=== PATIENT | male | born 1960 | race Caucasian/White ===

== ENCOUNTER → 2018-04-03 | Outpatient (CLI) | payer OTHER ==
[~2018-04-03] VITALS: Ht 180.3 cm; Wt 87.5 kg
[~2018-04-03] MED LIST: ASP81TEC PO; CATHETER FLUSH 10 ML SYR IV PRN; HYDR-3583 PO; METO25TA2 PO; PNT40TEC PO; RNT150T PO; SIMV40TA2 PO; TADA2.5T PO
[2018-04-03 13:23] VITALS: BP 174/92
[2018-04-03 13:39] VITALS: BP 212/94
--- NOTE | 2018-04-04 08:07 | STRESS TEST ---
DATE OF SERVICE: 04/03/2018 AN EXERCISE MYOVIEW STRESS TEST REPORT REFERRING PHYSICIAN: Dr. Gaudencio Monaco Baseline heart rate is 68. Baseline blood pressure is 172/90. Baseline EKG is sinus rhythm with no acute ischemic changes. In summary, the patient was injected with 10.81 mCi of technetium-99 Myoview and the resting images were obtained. Then, the patient started exercising with a baseline heart rate, blood pressure and EKG mentioned above. The patient was able to exercise for a total of 10 minutes and 40 seconds on standard Steven protocol. With peak exercise level, the patient had 1 to [address] depression in V4, V5, upsloping ST depression in V3, lead 2 and 3. In recovery, the patient had occasional premature ventricular contractions and ventricular couplets. The resting and stress images were reviewed and compared in the short axis, horizontal long axis and vertical long axis views. Review of the images showed diaphragmatic attenuation with mild decreased uptake at the base of the inferolateral wall with subtle reversibility. SSS is 1, SDS 1, TID value is 0.83. On the gated images, the left ventricle appeared to be a normal size with normal contractility. Calculated ejection fraction is 58%. CONCLUSION: 1. Excellent exercise tolerance, a total of 10 minutes 40 seconds on standard Steven protocol, total of 12.1 METS achieving 92% of maximum expected heart rate. 2. Baseline hypertension with severe hypertensive response to exercise, achieving maximum blood pressure of 244/89, returned to baseline during recovery. 3. Borderline EKG changes, nondiagnostic changes. 4. Diaphragmatic attenuation with subtle abnormality at the base of the inferolateral wall with mild reversibility, no gross ischemia or infarction was noted. 5. Normal left ventricular size with normal contractility. Calculated ejection fraction is 58%. Job ID: [id number] DocumentID: [id number] Dictated Date: 04/04/2018 07:52:15 Bending Machine Set Up Operator Date: 04/04/2018 08:07:29 Dictated By: MEIR MANUEL MD
== END ==
LOC: CARD 11:14
PROVIDERS: ATTEND Internal Medicine Cardiovascular Disease
DX: I25.10 Atherosclerotic heart disease of native coronary artery without angina pectoris (principal); I10 Essential (primary) hypertension; E78.2 Mixed hyperlipidemia; Z82.49 Family history of ischemic heart disease and other diseases of the circulatory system
CPT/HCPCS: 78452; 93017

== ENCOUNTER 2018-09-06 11:55 | Outpatient (CLI) | payer OTHER ==
[~2018-09-06 11:55] MED LIST changes: -CATHETER FLUSH 10 ML SYR IV PRN
== END 2018-09-06 12:30 | disposition home or self-care (01) ==
LOC: SLEEP 11:55
PROVIDERS: ATTEND Otolaryngology Otolaryngology/Facial Plastic Surgery
DX: G47.33 Obstructive sleep apnea (adult) (pediatric) (principal); R06.83 Snoring; I10 Essential (primary) hypertension; I25.9 Chronic ischemic heart disease, unspecified

== ENCOUNTER → 2018-09-26 | Outpatient (CLI) | payer OTHER | LOC: CARD 08:25 | PROVIDERS: ATTEND Internal Medicine Cardiovascular Disease | DX: I25.10 Atherosclerotic heart disease of native coronary artery without angina pectoris (principal); I10 Essential (primary) hypertension; E78.2 Mixed hyperlipidemia; Z82.49 Family history of ischemic heart disease and other diseases of the circulatory system | CPT/HCPCS: 93306 ==

== ENCOUNTER → 2019-03-14 | Outpatient (CLI) | payer OTHER ==
--- NOTE | 2019-03-14 11:32 | Diagnostic Imaging Report ---
PROCEDURE: US carotid duplex, bilateral. TECHNIQUE: Multiple real-time grayscale images were obtained over the carotid arteries in various projections, bilaterally. Additional spectral analysis and color Doppler duplex images were also obtained. INDICATION: Retinal abnormality. COMPARISON: There are no prior studies available for comparison. FINDINGS: There is a moderate amount of hard and soft plaque formation in both carotid systems. The flow velocities failed to show any sign of a hemodynamically significant stenosis of the common or internal carotid arteries. Both vertebral arteries were identified and there was antegrade flow bilaterally. During the course of the exam nodules were identified in each lobe of the thyroid. On the right, the nodule is estimated to be 1.6 x 1.2 x 1.5 cm while the left-sided nodule is larger measuring 3.3 x 2.6 x 2.3 cm. There also appear to be a few enlarged lymph nodes in the left neck with the largest measuring 3.3 x 3.1 x 1.5 cm. I would recommend that a dedicated thyroid ultrasound exam and ultrasound exam of the soft tissues of the neck be performed for further study. IMPRESSION: 1. There is atherosclerotic disease involving both carotid systems but there is no evidence for a hemodynamically significant stenosis of the common or internal carotid arteries. 2. There are bilateral thyroid nodules and adenopathy in the left neck. Recommendations as above. Parameters based on the consensus panel Roberto-Scale and Doppler ultrasound criteria published May 2003, Radiology, Volume 229. DOPPLER (peak systolic velocity M/S Right Left CCA 1.2 1.1 ICA Proximal .84 .63 ICA Mid .88 .83 ICA Distal .96 .82 RATIO 0.72 0.58 ECA 1.1 .76 VERT .57 .47 Dictated by: Dictated on workstation # [id number]
== END ==
LOC: RAD 08:56
PROVIDERS: ATTEND Nurse Practitioner Family
DX: I65.23 Occlusion and stenosis of bilateral carotid arteries (principal); E04.2 Nontoxic multinodular goiter; I25.10 Atherosclerotic heart disease of native coronary artery without angina pectoris; I27.21 Secondary pulmonary arterial hypertension; G47.33 Obstructive sleep apnea (adult) (pediatric); I10 Essential (primary) hypertension; R59.0 Localized enlarged lymph nodes
CPT/HCPCS: 93225; 93226; 93880

== ENCOUNTER → 2019-05-29 | Outpatient (CLI) | payer OTHER ==
--- NOTE | 2019-05-29 17:08 | Diagnostic Imaging Report ---
PROCEDURE: US Thyroid. TECHNIQUE: Multiple real-time grayscale images were obtained of the thyroid in various projections. INDICATION: Thyroid nodules. COMPARISON: None. FINDINGS: The thyroid demonstrates a generalized heterogeneous echotexture. Right lobe of the thyroid measures 5.7 x 1.9 x 2.2 cm. The left lobe of the thyroid measures 5.3 x 2.7 x 3.5 cm. The isthmus measures 0.4 cm in thickness. Multiple heterogeneous solid nodules are seen throughout the thyroid which demonstrate vascularity. The largest in the inferior pole of the right thyroid measures 1.7 x 1.6 x 1.6 cm and demonstrates associated calcifications. The largest on the left is visualized in the inferior pole measuring 3.7 x 2.8 x 2.7 cm and also demonstrates associated calcifications. Enlarged lymph nodes are seen in the bilateral cervical chains, the largest in the left neck measuring 2.6 x 3.6 x 1.1 cm. IMPRESSION: 1. Multiple heterogeneous vascular solid nodules within the thyroid bilaterally. Recommend correlation with TSH values and thyroid FNA if indicated. 2. Bilateral cervical lymphadenopathy. Dictated by: Dictated on workstation # [id number]
== END ==
LOC: RAD 11:14
PROVIDERS: ATTEND Family Medicine
DX: E04.2 Nontoxic multinodular goiter (principal); R59.0 Localized enlarged lymph nodes
CPT/HCPCS: 76536

== ENCOUNTER → 2019-07-15 | Outpatient (CLI) | payer OTHER ==
[~2019-07-15] MED LIST changes: +GADOBUTROL 10 MMOL/10 ML (GADAVIST) VIAL IV ONE
[2019-07-15 13:52] LABS: BUN/CREATININE RATIO 20; CREATININE SERUM 0.98 MG/DL (0.60-1.30); GFR ESTIMATED > 60
--- NOTE | 2019-07-15 15:20 | Diagnostic Imaging Report ---
INDICATION: Optic nerve edema. COMPARISON: No prior studies are available for comparison. FINDINGS: The ventricles and sulci are within normal limits. No diffusion restriction is identified to suggest acute ischemia. The normal expected flow voids within the carotid siphons are seen. No white matter changes are identified. No acute intra-axial or extra-axial hemorrhage is detected. The corpus callosum is unremarkable. The sella and parasellar structures are unremarkable. Note is made of bilateral mastoid effusions. There is some mucosal thickening as well as a mucus retention cyst or polyp in the left maxillary sinus. There is mucosal thickening involving ethmoid air cells. Imaging through the orbits demonstrates both globes to be symmetric and unremarkable. Extraocular muscles appear to be symmetric. No orbital mass is seen. No abnormal enhancement following contrast administration is seen. The optic nerves appear to be symmetric. IMPRESSION: 1. Essentially unremarkable MRI of the brain and orbits. No abnormalities detected. 2. Paranasal sinus mucosal disease and bilateral mastoid effusions. Dictated by: Dictated on workstation # [id number]
== END ==
LOC: RAD 13:23
PROVIDERS: ATTEND Ophthalmology
DX: H47.10 Unspecified papilledema (principal); M25.48 Effusion, other site; J32.9 Chronic sinusitis, unspecified
CPT/HCPCS: 36415; 70553; 82565; 84520

== ENCOUNTER → 2019-10-01 | Outpatient (CLI) | payer OTHER ==
[~2019-10-01] MED LIST changes: -GADOBUTROL 10 MMOL/10 ML (GADAVIST) VIAL IV ONE
--- NOTE | 2019-10-01 10:01 | Diagnostic Imaging Report ---
INDICATION: Status post complete thyroidectomy. Patient has bilateral neck lumps. COMPARISON: Correlation is made with an outside ultrasound from 06/26/2019 as well as a prior thyroid ultrasound from 05/29/2019. FINDINGS: The thyroid is now surgically absent. There are enlarged lymph nodes in the neck soft tissues bilaterally. The largest nodes appear to be on the right side on today's study. There is a lymph node measuring approximately 4.5 x 2.4 x 1.3 cm. A second node measures 1.8 x 1.6 x 0.7 cm. On the left, the largest node is approximately 1.7 x 0.7 x 2.4 cm. This appears reduced when compared with the prior thyroid ultrasound from May when there were enlarged lymph nodes in the left neck measuring up to 2.6 x 3.6 cm. These are not appreciated on today's study. No fluid collections are seen. IMPRESSION: Bilateral cervical lymphadenopathy with the largest on the right side. The enlarged lymph nodes previously noted in the left neck appear reduced in size since the prior exam. The patient is reportedly scheduled for lymph node biopsies tomorrow. Dictated by: Dictated on workstation # [id number]
== END ==
LOC: RAD 08:46
PROVIDERS: ATTEND Otolaryngology
DX: C73 Malignant neoplasm of thyroid gland (principal); C83.00 Small cell B-cell lymphoma, unspecified site; R22.1 Localized swelling, mass and lump, neck; R59.0 Localized enlarged lymph nodes; Z90.49 Acquired absence of other specified parts of digestive tract
CPT/HCPCS: 76536

== ENCOUNTER → 2019-10-02 | Outpatient (CLI) | payer OTHER ==
[~2019-10-02] VITALS: Ht 180.3 cm; Wt 81.8 kg
[~2019-10-02] MED LIST changes: +LIDOCAINE 1% INJ 20 ML 20 ML VIAL INJ ONE; +LIDOCAINE 1% INJ 20 ML 20 ML VIAL ONE
--- NOTE | 2019-10-03 08:58 | Diagnostic Imaging Report ---
INDICATION: Bilateral cervical lymphadenopathy. Patient presents for ultrasound-guided soft tissue neck lymph node biopsy. Patient is brought to the procedure room placed on the table in supine position. Ultrasound imaging of the left neck was performed to evaluate appropriate entry site. Left neck was then prepped and draped in usual sterile fashion. Small amount of 1% lidocaine was utilized for local anesthesia. A total of 4 passes were made into largest lymph node left neck in the left submandibular location utilizing 25-gauge needles and fine-needle aspiration technique. Hemostasis was obtained using manual compression. Patient tolerated the procedure well and left department in stable condition. IMPRESSION: Successful ultrasound-guided fine-needle aspiration of left neck submandibular lymph node. Pathology results are currently pending. Dictated by: Dictated on workstation # [id number]
--- NOTE | 2019-10-03 10:22 | Diagnostic Imaging Report ---
INDICATION: Right neck lymphadenopathy. Patient presents for ultrasound-guided biopsy. FINDINGS: Patient was brought to the procedure room, placed on table in the supine position. Ultrasound imaging of the right neck was performed to evaluate appropriate entry site. The right neck was then prepped and draped in the usual sterile fashion. A small amount of 1% lidocaine was utilized for local anesthesia. A total of four passes were made into the dominant lymph node in the right neck utilizing 25-gauge needles and fine-needle aspiration technique. Next, total of three core biopsies were obtained of the dominant lymph node in the right neck utilizing 18-gauge Temno needle. Jasper were removed and hemostasis was obtained using manual compression. Patient tolerated the procedure well and left the department in stable condition. IMPRESSION: Successful right neck lymph node fine-needle aspiration and core biopsy, using ultrasound guidance. Dictated by: Dictated on workstation # [id number]
== END ==
LOC: RAD 09:37
PROVIDERS: ATTEND Otolaryngology
DX: C83.01 Small cell B-cell lymphoma, lymph nodes of head, face, and neck (principal); C73 Malignant neoplasm of thyroid gland
CPT/HCPCS: 88173; 88305

== ENCOUNTER → 2020-03-17 | Outpatient (CLI) | payer OTHER ==
[~2020-03-17] MED LIST changes: -LIDOCAINE 1% INJ 20 ML 20 ML VIAL INJ ONE; -LIDOCAINE 1% INJ 20 ML 20 ML VIAL ONE
== END ==
LOC: CARD 08:38
PROVIDERS: ATTEND Internal Medicine Cardiovascular Disease
DX: I25.10 Atherosclerotic heart disease of native coronary artery without angina pectoris (principal); I10 Essential (primary) hypertension; E78.2 Mixed hyperlipidemia; I27.20 Pulmonary hypertension, unspecified
CPT/HCPCS: 93306

== ENCOUNTER 2020-04-16 07:45 | Observation (INO) | payer OTHER ==
[2020-04-16] VITALS (13 sets, daily range): BP systolic 121–161; BP diastolic 68–97
[~2020-04-16] VITALS: Ht 181 cm; Wt 84.0 kg
[~2020-04-16 07:45] MED LIST changes: +CATHETER FLUSH 10 ML SYR IV PRN
[2020-04-16] MEDS ORDERED: LEVOTHYROXINE 150 MCG (LEVOTHROID) TAB PO ONE (10:15)
[2020-04-16] MEDS ORDERED: CLOPIDOGREL 75 MG (PLAVIX) TABLET PO ONE ×2 (10:15→14:15)
[2020-04-16] MEDS ORDERED: NS IV 1000 ML 1,000 ML IV SCH (10:15)
[2020-04-16] MEDS ORDERED: ASPIRIN 81 MG CHEW (CHILDREN'S ASA) PO ONE (10:15)
[2020-04-16] MEDS ORDERED: meTOproloL SUCCINATE 50 MG (TOPROL XL) TAB PO SCH ×2 (10:15→14:15)
--- NOTE | 2020-04-16 11:15 | Cardiology History & Physical ---
HPI-Cardiology Cardiology H&P Date of Admission 04-16-2020 Primary Care Physician Karina Huff MD Attending Physician Alan Coleman MD Facp Fac Ccds Consulting Physician MEGAN Mr. Orellana is a 60 year old male who is being admitted to [facility] from his exercise cardiolite stress test earlier this morning d/t episodes of WCT during the recovery phase. He denies any c/o CP, palpitations, dyspnea, syncope or near syncope. No c/o LE swelling. No c/o n/v/d. No c/o fever or chills. Review of Systems-Cardiology Review of Systems Constitutional: No chills, No fever, No weight loss Eyes: No vision change Ears/Nose/Throat: No recent hearing loss Respiratory: As described under HPI Cardiovascular: As described under HPI Gastrointestinal: No constipation, No diarrhea, No nausea Genitourinary: No dysuria, No hematuria Musculoskeletal: no symptoms reported Skin: No rash on exposed areas Psychiatric/Neurological: No anxiety, No focal weakness, No syncope Hematologic: No bleeding abnormalities [id number] Hx Patient Social History Recent Foreign Travel: No Past Medical History PMH As described under Assessment. Family Medical History Family Medical History: Family h/o father having CAD Allergies and Home Medications Allergies Coded Allergies: Penicillins (Unverified Allergy, Unknown, 03/17/20) Home Medications Aspirin 81 Mg Tabec, 81 MG PO DAILY, (Reported) Clopidogrel Bisulfate 75 Mg Tablet, 75 MG PO DAILY Prescribed by: ALAN COLEMAN on 04/17/20 1513 Hydrocodone Bit/Acetaminophen 1 Tab Tab, 1-2 EA PO Q4HR PRN, (Reported) MAY TAKE 1 OR 2 TABS BY MOUTH EVERY 4 HRS NEEDED FOR PAIN Metoprolol Succinate 100 Mg Tab.er.24h, 100 MG PO DAILY Prescribed by: ALAN COLEMAN on 04/17/20 1513 Simvastatin 40 Mg Tablet, 40 MG PO HS, (Reported) Physical Exam-Cardiology Physical Exam Vital Signs/I&O Capillary Refill : Constitutional: AAO x 3, well-developed, well-nourished HEENT: PERRL, hearing is well preserved, oral hygience is good Neck: No carotid bruit; carotid pulses are 2 + bilaterally Respiratory: No accessory muscle use, No respiratory distress; chest expansion is symmetric, chest is bilaterally symmetric, lungs clear to auscultation Cardiovascular: regular rate-rhythm, S1 and S2 Gastrointestinal: soft, round, audible bowel sounds Extremities: no lower extremity edema bilateral Neurologic/Psychiatric: grossly intact (moves all extremities) Skin: No rash on exposed areas, No ulcerations on exposed areas A/P-Cardiology Assessment/Admission Diagnosis WCT recovery phase exercise cardiolite this morning Papillary thyroid CA for which he has had thyroidectomy, lymph nodes dissection, radioiodine ablation in early 2019 Non-Hodgkin's lymphoma diagnosed in early 2019. Oncologist Dr Mahoney and Dr Ortega at [place], [place] CAD. H/o MORRISSEY to LAD by Dr Fay in 2010. Echocardiogram of September [address] Giles showed LVEF 55-65%. Mild to mod TR. PASP 45-50mmHg Carotid u/s of Feb 2019 showed mild to mod carotid dz without hemodynamic signif 24 HR Holter of Mar 16, 2019 with NSR with av HR 79 bpm. Rare, isolated PVC's and PAC's. No VT or SVT or significant bradycardia on this study Pulmonary hypertension per echo of September 2018 Sleep apnea - CPAP tx in the past that he stopped in or around October 2019 because he felt he didn't have DIANA any longer after thyroid surgery. (He did check with his sleep physician, Dr Chaves, before stopping CPAP) Hypertension Hyperlipidemia, treated with statin and followed by his pcp Impaired fasting glucose Non-arteritic anterior ischemic optic neuropathy (NAION) - for which he is following with Dr. Pro at [facility], apparently resolved after thyroid surgery of early 2019 Admission Status: Observation Discussion and Recomendations Episode of WCT during recovery phase of exercise cardiolite this morning Admit to [facility] Cardiac cath later today. We have discussed the procedure, risks, benefits and potential complications of cardiac cath with possible ad hoc coronary intervention. He provides informed consent. We will proceed later today. Start Plavix Continue ASA, BB and statin CMP, lipid, CBC, TSH, Mag level Further recs will be based on his hospital course IRAIDA GARCES Apr 16, 2020 11:15
[2020-04-16 11:30] LABS: HEMOGLOBIN 15.8 g/dL (13.3-17.7); MEAN PLATELET VOLUME 11.1 fL (9.0-12.2)
[2020-04-16 11:38] LABS: CHLORIDE 105 MMOL/L (98-107); POTASSIUM 4.2 MMOL/L (3.6-5.0); SODIUM 139 MMOL/L (135-145)
[2020-04-16 11:40] LABS: CALCIUM 8.8 MG/DL (8.5-10.1); TRIGLYCERIDES 128 MG/DL (<150); VLDL CHOLESTEROL 26 MG/DL (5-40)
[2020-04-16 11:41] LABS: GLUCOSE 116 MG/DL (70-105)
[2020-04-16 11:42] LABS: CARBON DIOXIDE 22 MMOL/L (21-32)
[2020-04-16 11:44] LABS: GFR ESTIMATED > 60
[2020-04-16 11:45] LABS: BUN/CREATININE RATIO 20
[2020-04-16 11:46] LABS: CHOLESTEROL 151 MG/DL (< 200); HDL CHOLESTEROL 36 MG/DL (40-60)
[2020-04-16] MEDS ORDERED: NS IV 1000 ML 1,000 ML ONE (11:53)
[2020-04-16] MEDS ORDERED: HEParin (CATH LAB) 2,000 ML IV ONE (11:53)
[2020-04-16] MEDS ORDERED: LIDOCAINE 1% INJ 20 ML 20 ML VIAL ONE (11:53)
[2020-04-16 11:56] LABS: PROTHROMBIN TIME PATIENT 13.5 SEC (12.2-14.7)
[2020-04-16] MEDS ORDERED: CLOPIDOGREL 75 MG (PLAVIX) TABLET ONE (14:15)
[2020-04-16] MEDS ORDERED: ASPIRIN 325 MG (5 GR) TABLET PO ONE (14:15)
[2020-04-16] MEDS ORDERED: fentaNYL INJECTION 100 MCG/2 ML AMP ONE (14:16)
[2020-04-16] MEDS ORDERED: MIDAZOLAM 5 MG/5 ML (VERSED) VIAL ONE (14:16)
[2020-04-16] MEDS ORDERED: ASPIRIN E.C. 81 MG (ECOTRIN) TAB PO ONE (14:16)
--- NOTE | 2020-04-16 14:28 | NUR ---
Non Licensed Nuclear Equipment Operator team in room to take pt to director geophysical laboratory.
[2020-04-16] MEDS ORDERED: EPTIFIBATIDE BOLUS 20 ML IV ONE (15:05)
[2020-04-16] MEDS ORDERED: HEParin 1000 UNIT/ML (10ML VIAL) FOR BOLUS ONE (15:05)
[2020-04-16] MEDS ORDERED: ASPIRIN 81 MG CHEW (CHILDREN'S ASA) ONE (15:33)
[2020-04-16] MEDS ORDERED: CLOPIDOGREL 300 MG (PLAVIX) TABLET PO ONE (15:33)
--- NOTE | 2020-04-16 15:41 | Cardiology History & Physical ---
HPI-Cardiology Cardiology H&P Date of Admission 04/16/20 Primary Care Physician Karina Huff MD Attending Physician Alan Coleman MD, MA FACP [facility] Consulting Physician [facility] Mr. Orellana is a 60 year old male who is being admitted to [facility] from his exercise cardiolite stress test earlier this morning d/t episodes of WCT during the recovery phase. He denies any c/o CP, palpitations, dyspnea, syncope or near syncope. No c/o LE swelling. No c/o n/v/d. No c/o fever or chills. Review of Systems-Cardiology Review of Systems Constitutional: No chills, No fever, No weight loss Eyes: No vision change Ears/Nose/Throat: No recent hearing loss Respiratory: As described under HPI Cardiovascular: As described under HPI Gastrointestinal: No constipation, No diarrhea, No nausea Genitourinary: No dysuria, No hematuria Musculoskeletal: no symptoms reported Skin: No rash on exposed areas Psychiatric/Neurological: No anxiety, No focal weakness, No syncope Hematologic: No bleeding abnormalities NDH-Pumkoo-Xiduxb Hx Patient Social History Recent Foreign Travel: No Past Medical History PMH As described under Assessment. Family Medical History Family Medical History: Family h/o father having CAD Allergies and Home Medications Allergies Coded Allergies: Penicillins (Unverified Allergy, Unknown, 03/17/20) Home Medications Aspirin 81 Mg Tabec, 81 MG PO DAILY, (Reported) Hydrocodone Bit/Acetaminophen 1 Tab Tab, 1-2 EA PO Q4HR PRN, (Reported) MAY TAKE 1 OR 2 TABS BY MOUTH EVERY 4 HRS NEEDED FOR PAIN Metoprolol Tartrate 25 Mg Tablet, 1 TAB PO DAILY, (Reported) Simvastatin 40 Mg Tablet, 40 MG PO HS, (Reported) Patient Home Medication List Home Medication List Reviewed: Yes Physical Exam-Cardiology Physical Exam Vital Signs/I&O 04/16/20 04/16/20 04/16/20 04/16/20 09:02 10:35 11:50 12:35 Temp 36.3 Pulse 79 74 60 66 Resp 16 12 17 B/P (MAP) 152/97 (115) 159/89 (112) 161/94 (116) Pulse Ox 99 98 97 O2 Delivery Room Air Room Air Room Air Capillary Refill : Constitutional: AAO x 3, well-developed, well-nourished HEENT: PERRL, hearing is well preserved, oral hygience is good Neck: No carotid bruit; carotid pulses are 2 + bilaterally Respiratory: No accessory muscle use, No respiratory distress; chest expansion is symmetric, chest is bilaterally symmetric, lungs clear to auscultation Cardiovascular: regular rate-rhythm, S1 and S2 Gastrointestinal: soft, round, audible bowel sounds Extremities: no lower extremity edema bilateral Neurologic/Psychiatric: grossly intact (moves all extremities) Skin: No rash on exposed areas, No ulcerations on exposed areas Data Review Labs Laboratory Tests 04/16/20 11:15: White Blood Count 8.0, Red Blood Count 5.76H, Hemoglobin 15.8, Hematocrit 48, Mean Corpuscular Volume 83, Mean Corpuscular Hemoglobin 27, Mean Corpuscular Hemoglobin Concent 33, Red Cell Distribution Width 13.1, Platelet Count 130, Mean Platelet Volume 11.1, Prothrombin Time 13.5, INR Comment 1.0, Activated Partial Thromboplast Time 25, Sodium Level 139, Potassium Level 4.2, Chloride Level 105, Carbon Dioxide Level 22, Anion Gap 12, Blood Urea Nitrogen 20H, Creatinine 1.00, Estimat Glomerular Filtration Rate > 60, BUN/Creatinine Ratio 20, Glucose Level 116H, Calcium Level 8.8, Triglycerides Level 128, Cholesterol Level 151, LDL Cholesterol Direct 100, VLDL Cholesterol 26, HDL Cholesterol 36L, Thyroid Stimulating Hormone (TSH) 0.13L A/P-Cardiology Assessment/Admission Diagnosis Nonsustained wide-complex tachycardia during recovery phase of ETT-MPI this morning. This is suggestive of ischemia Papillary thyroid CA for which he has had thyroidectomy, lymph nodes dissection, radioiodine ablation in early 2019 Non-Hodgkin's lymphoma diagnosed in early 2019. Oncologist Dr Mahoney and Dr Ortega at [place], [place] CAD. H/o MORRISSEY to LAD by Dr Fay in 2010. Echocardiogram of September [address] Giles showed LVEF 55-65%. Mild to mod TR. PASP 45-50mmHg Carotid u/s of Feb 2019 showed mild to mod carotid dz without hemodynamic signif 24 HR Holter of Mar 16, 2019 with NSR with av HR 79 bpm. Rare, isolated PVC's and PAC's. No VT or SVT or significant bradycardia on this study Pulmonary hypertension per echo of September 2018 Sleep apnea - CPAP tx in the past that he stopped in or around October 2019 because he felt he didn't have DIANA any longer after thyroid surgery. (He did check with his sleep physician, Dr Chaves, before stopping CPAP) Hypertension Hyperlipidemia, treated with statin and followed by his pcp Impaired fasting glucose Non-arteritic anterior ischemic optic neuropathy (NAION) - for which he is following with Dr. Pro at [facility], apparently resolved after thyroid surgery of early 2019 Admission Status: Observation Discussion and Recomendations Episode of WCT during recovery phase of exercise cardiolite this morning Admit to [facility] Cardiac cath later today. We have discussed the procedure, risks, benefits and potential complications of cardiac cath with possible ad hoc coronary intervent ion. He provides informed consent. We will proceed later today. Start Plavix Continue ASA, BB and statin CMP, lipid, CBC, TSH, Mag level Further recs will be based on his hospital course ALAN COLEMAN MD FACP FAC [facility] Apr 16, 2020 15:41
[2020-04-16] MEDS ORDERED: PATIENT MAY USE OWN MEDS, ALL PO SCH (16:00)
[2020-04-16] MEDS ORDERED: ACETAMINOPHEN 325 MG TABLET PO PRN (16:00)
[2020-04-16] MEDS: NS IV 1000 ML 1,000 ML IV SCH (17:18)
--- NOTE | 2020-04-16 18:55 | STRESS TEST ---
DATE OF SERVICE: 04/16/2020 RESTING AND POST EXERCISE TECHNETIUM-99M TETROFOSMIN SPECT CT IMAGING ORDERING PHYSICIAN: Dr. Coleman. PRIMARY PHYSICIAN: Dr. Huff. CLINICAL DIAGNOSES: Coronary artery disease. Baseline images were carried out after injection of 10.76 mCi of technetium-99m Tetrofosmin. This was followed by exercise on a treadmill. Steven protocol was employed. Heart rate response to exercise was normal. Blood pressure response to exercise was somewhat hypertensive. There was approximately [address] segment depression at peak exercise and in the immediate post-recovery phase. Also, in the recovery phase, shortly after completion of the exercise, the patient had a brief run of nonsustained wide complex tachycardia at approximately 100 beats per minute. This was asymptomatic and resolving. The patient received 29.5 mCi of technetium-99m Tetrofosmin after he had approximately 83% of maximum predicted heart rate and had indicated that he would not be able to go more than another minute. The exercise was then continued for another minute. He attained 90% of maximum predicted heart rate and exercised for a total of 11 minutes and 12 seconds in the Steven protocol. He had attained 12.1 METS of workload. Review of images at rest and following stress does not indicate any distinct perfusion defects consistent with significant myocardial ischemia or infarction. Gated images show normal global left ventricular systolic function with normal regional wall motion. Left ventricular ejection fraction is calculated to be 61%. Left ventricular end diastolic volume is 61 mL. TID is absent (0.92). CONCLUSION: 1. Imaging does not indicate significant myocardial ischemia or infarction. However, the study is abnormal because the patient had nonsustained wide complex tachycardia at approximately 100 beats per minute in the immediate post-exercise phase (asymptomatic). 2. Normal global left ventricular systolic function with normal regional wall motion and left ventricular ejection fraction of 61%. 3. Normal left ventricular cavity size. Job ID: [id number] DocumentID: [id number] Dictated Date: 04/16/2020 14:32:29 Senior Internet Sales Consultant Date: 04/16/2020 18:54:11 Dictated By: MARCELINO COLEMAN MD, MA, FACP, FACC, MTDD
[2020-04-16] MEDS ORDERED: ATROPINE INJ 0.4 MG/ML SDV ONE (19:29)
[2020-04-16] MEDS ORDERED: fentaNYL INJECTION 100 MCG/2 ML AMP IVP NR (19:30)
[2020-04-16] MEDS ORDERED: SIMvastatin 10 MG (ZOCOR) TAB PO SCH (21:00)
--- NOTE | 2020-04-16 21:48 | CARDIAC CATHETERIZATION ---
DATE OF SERVICE: 04/16/2020 CARDIAC CATHETERIZATION AND CORONARY INTERVENTION The patient is a 60-year-old gentleman with a history of coronary artery disease who has had left internal mammary artery graft bypass surgery to the left anterior descending several years ago. Today, in the immediate recovery phase of a stress test, he developed nonsustained wide complex tachycardia. He was hospitalized. Cardiac catheterization was carried out after we had obtained informed consent for cardiac catheterization and possible ad hoc coronary intervention. DESCRIPTION OF PROCEDURE: He was brought to the cardiac catheterization laboratory in a fasting state. Right groin was prepared and draped in the usual sterile fashion. Lidocaine 1% was used for local anesthesia. Modified Seldinger technique was used to advance a 5-Bangladeshi sheath into the right femoral artery, 5-Bangladeshi JL4 catheter was used for left coronary angiography, 5-Bangladeshi JR4 catheter was used for right coronary angiography and for angiography of the left internal mammary artery graft to the left anterior descending. A 5-Bangladeshi pigtail catheter was used for left heart catheterization and left ventricular angiography. Pigtail was pulled back to the aortic root and aortic root angiography was performed. Aortic root angiography was performed to make sure that there were no additional coronary vessels because the right coronary artery was found to be diminutive. PERCUTANEOUS INTERVENTION PERCUTANEOUS INTERVENTION TO THE LEFT ANTERIOR DESCENDING: The left anterior descending has approximately 70% ostial and proximal stenosis. This appears to be functionally significant because of the patient's nonsustained wide complex tachycardia in the immediate post-exercise phase. The left internal mammary artery graft goes to a diagonal branch of the left anterior descending not directly to the left anterior descending. There does not appear to be retrograde flow into the left anterior descending. Accordingly, we proceeded with percutaneous intervention to the ostial/proximal left anterior descending. We exchanged the sheath over a wire for a 6-Bangladeshi sheath. We used a 6-Bangladeshi JL4 guide catheter to engage the left coronary. We used a BMW wire to cross the lesion. We advanced Xience Gaby 2.75 x 12 mm stent. This was carefully positioned to cover the entire lesion and the stent was deployed at 16 atmospheres. Subsequent angiography revealed 0% residual stenosis at the previous site of 70% stenosis. Flow throughout the vessel is normal. There is no compromise of the other vessels. The patient tolerated the procedure well. He received intravenous heparin and a double bolus of Integrilin during the procedure and oral clopidogrel following the procedure. HEMODYNAMICS: Left ventricular end-diastolic pressure following coronary angiography was 10 mmHg. There was no significant pressure gradient on pullback across the aortic valve. Ascending aortic pressure was 138/68 with a mean of 96 mmHg. CORONARY ANGIOGRAPHY: Left main coronary artery is free of significant disease. Left anterior descending has approximately 70% ostial and proximal stenosis, which was successfully stented with Xience Gaby 2.75 x 12 mm stent. Left circumflex artery is dominant. Right coronary artery is very small and nondominant. LEFT INTERNAL MAMMARY ARTERY GRAFT ANGIOGRAPHY: Left internal mammary artery graft appears to go to the first diagonal branch. It is intact, but appears of small caliber and atretic. LEFT VENTRICULAR ANGIOGRAPHY: Left ventricular angiography was carried out in the right anterior oblique projection. Global left ventricular systolic function is normal. Left ventricular ejection fraction is approximately 60%. AORTIC ROOT ANGIOGRAPHY: Aortic root angiography did not show any thoracic aortic aneurysm or dissection. There is no significant aortic regurgitation. No additional coronary vessels were identified other than the ones described above. Aortic valve leaflets exhibit good leaflet excursion. CONCLUSIONS: 1. Coronary artery disease consisting of 70% ostial and proximal stenosis of left anterior descending artery that was successfully stented with Xience Gaby 2.75 x 12 mm stent. 2. Small, atretic left internal mammary artery graft to a diagonal branch of the left anterior descending. 3. Normal left ventricular end-diastolic pressure. 4. Normal global left ventricular systolic function with ejection fraction of approximately 60%. Job ID: [id number] DocumentID: [id number] Dictated Date: 04/16/2020 16:08:35 Panel Sewer Date: 04/16/2020 21:47:30 Dictated By: MARCELINO SEGURA MD, MA, FACP, FACC,
[2020-04-17] VITALS (11 sets, daily range): BP systolic 106–149; BP diastolic 48–85
[2020-04-17] MEDS: NS IV 1000 ML 1,000 ML IV SCH ×2 (01:51→10:33)
[2020-04-17 02:55] LABS: HEMOGLOBIN 14.7 g/dL (13.3-17.7); WHITE BLOOD COUNT 8.9 10^3/uL (4.3-11.0)
[2020-04-17 03:16] LABS: BUN/CREATININE RATIO 15; CARBON DIOXIDE 22 MMOL/L (21-32); CHLORIDE 107 MMOL/L (98-107); CREATININE SERUM 1.13 MG/DL (0.60-1.30); GFR ESTIMATED > 60; GLUCOSE 107 MG/DL (70-105); POTASSIUM 3.9 MMOL/L (3.6-5.0); SODIUM 142 MMOL/L (135-145)
[2020-04-17] MEDS ORDERED: LEVOTHYROXINE 150 MCG (LEVOTHROID) TAB PO SCH (06:30)
[2020-04-17] MEDS ORDERED: LEVOTHYROXINE 100 MCG (LEVOTHROID) TAB PO SCH (08:25)
[2020-04-17] MEDS ORDERED: LEVOTHYROXINE 75 MCG (LEVOTHROID) TABLET PO SCH (08:26)
[2020-04-17] MEDS ORDERED: ASPIRIN 81 MG CHEW (CHILDREN'S ASA) PO SCH (09:00)
[2020-04-17] MEDS ORDERED: meTOproloL SUCCINATE 50 MG (TOPROL XL) TAB PO SCH (09:00)
[2020-04-17] MEDS ORDERED: CLOPIDOGREL 75 MG (PLAVIX) TABLET PO SCH (09:00)
[2020-04-17] MEDS ORDERED: CLOP75TA28 PO (15:13)
[2020-04-17] MEDS ORDERED: METO100T6 PO (15:13)
--- NOTE | 2020-04-17 15:15 | Discharge Inst-Cardiology ---
Discharge Inst-Cardiac Discharge Medications New Medications: Metoprolol Succinate (Toprol Xl) 100 Mg Tab.er.24h 100 MG PO DAILY, #90 TAB 3 Refills Clopidogrel Bisulfate (Clopidogrel) 75 Mg Tablet 75 MG PO DAILY for 90 Days, #90 TAB 3 Refills Continued Medications: Aspirin (Aspirin Ec 81 Mg) 81 Mg Tabec 81 MG PO DAILY Hydrocodone Bit/Acetaminophen (Lortab 5 Mg) 1 Tab Tab 1 - 2 EA PO Q4HR PRN, #30 1 Refill MAY TAKE 1 OR 2 TABS BY MOUTH EVERY 4 HRS NEEDED FOR PAIN Simvastatin (Zocor) 40 Mg Tablet 40 MG PO HS Discontinued Medications: Metoprolol Tartrate (Metoprolol Tartrate 25 Mg) 25 Mg Tablet 1 TAB PO DAILY MARCELINO SEGURA MD FACP [facility] CCDS Apr 17, 2020 15:15
--- NOTE | 2020-04-17 15:16 | Discharge Inst-Post CATH ---
Discharge Inst-CATH/EP Post Cardiac Cath/EP D/C Inst Follow Up/Plan F/u with Dr Coleman in one week ACTIVITY * Go Home directly and rest. * Limit activity of the leg (or wrist if it was used) for 7 days including aerobics, swimming, jogging, bicycling, etc. * Restrict stair-climbing for 7 days if possible, if not, climb up with your non-cath leg, then bring together on the same step. * Avoid lifting, pushing, pulling or excessive movement of the affected e xtremity for 7 days. * Customary sexual activity may be resumed after 2 days-use caution not to use a position that strains or causes pain to the affected extremity. * No driving for 24 hours. * NO SMOKING. * Avoid straining for bowel movements for 7 days. * Gentle walking on level ground is allowed. * Returning to work will depend on the type of procedure and the results. Your doctor will discuss this with you. CALL YOUR DOCTOR FOR ANY OF THE FOLLOWING: *If bleeding from the puncture site occurs- Apply gentle pressure to site with clean cloth and call your doctor or EMS. * If a knot or lump forms under the skin, increases in size, or causes pain. * If bruising appears to be worsening or moving further down your leg instead of disappearing. * Temperature above 101 F. CARE OF YOUR GROIN INCISION; * Bruising or purple discoloration of the skin near the puncture site is common. * You may shower only, no bathtub bathing for 5 days. Be careful to avoid slipping as your leg may feel stiff. * If a closure device was used on your femoral artery, please see the attached guide regarding care of the device and your leg. * Leave dressing on FOR 24 hours. CARE OF YOUR WRIST INCISION; * Bruising or purple discoloration of the skin near the puncture site is common. * You may shower. * DO NOT submerge wrist. * Leave dressing on FOR 24 hours. MARCELINO COLEMAN MD FACP [facility]S Apr 17, 2020 15:16
--- NOTE | 2020-04-17 15:22 | Progress Note - Cardiology ---
Cardiology SOAP Progress Note Subjective: No cp or palp or syncope or shortness of breath or groin or leg discomfort No n/v/d No focal weakness Feels well and wishes to go home Objective: I&O/Vital Signs 04/17/20 04/17/20 04/17/20 04/17/20 04:00 05:00 06:00 07:00 Pulse 65 57 57 63 Resp 20 18 18 B/P (MAP) 133/70 (91) 138/78 (98) 106/75 (85) Pulse Ox 96 95 95 O2 Delivery Nasal Cannula Nasal Cannula Nasal Cannula O2 Flow Rate 1.00 1.00 1.00 04/17/20 04/17/20 04/17/20 04/17/20 07:00 08:00 08:00 11:51 Temp 36.2 Pulse 62 61 Resp 15 21 B/P (MAP) 138/76 (96) 149/85 (106) Pulse Ox 96 95 O2 Delivery Nasal Cannula Nasal Cannula Room Air O2 Flow Rate 1.00 1.00 04/17/20 04/17/20 12:16 12:49 Pulse 69 O2 Delivery Room Air 04/17/20 00:00 Intake Total 6 ml Balance 6 ml Weight (Pounds): 193 Weight (Ounces): 0.0 Weight (Calculated Kilograms): 87.349678 Constitutional: AAO x 3, well-developed, well-nourished Respiratory: No accessory muscle use, No respiratory distress; chest expansion is symmetric, chest is bilaterally symmetric, lungs clear to auscultation Cardiovascular: regular rate-rhythm, S1 and S2 Gastrointestional: soft, round, audible bowel sounds Extremities: no lower extremity edema bilateral Neurologic/Psychiatric: grossly intact (moves all extremities) Skin: No rash on exposed areas, No ulcerations on exposed areas Results/Procedures: Labs Laboratory Tests 04/16/20 16:53: Activated Partial Thromboplast Time 92H 04/16/20 18:20: Activated Partial Thromboplast Time 40H 04/17/20 02:40: White Blood Count 8.9, Red Blood Count 5.34, Hemoglobin 14.7, Hematocrit 44, Mean Corpuscular Volume 83, Mean Corpuscular Hemoglobin 28, Mean Corpuscular Hemoglobin Concent 33, Red Cell Distribution Width 13.1, Platelet Count 125L, Mean Platelet Volume 11.0, Sodium Level 142, Potassium Level 3.9, Chloride Level 107, Carbon Dioxide Level 22, Anion Gap 13, Blood Urea Nitrogen 17, Creatinine 1.13, Estimat Glomerular Filtration Rate > 60, BUN/Creatinine Ratio 15, Glucose Level 107H, Calcium Level 8.0L Laboratory Tests 04/16/20 11:15 04/17/20 02:40 A/P: Assessment: Nonsustained wide-complex tachycardia during recovery phase of ETT-MPI on 04/16/20, suggestive of ischemia, treated with relief of ischemia by stenting a severe, ostial stenosis of the LAD on 04/16/20 CAD, s/o MORRISSEY to LAD in 2010. Last card cath on 04/16/20: Coronary artery disease consisting of 70% ostial and proximal stenosis of left anterior descending artery that was successfully stented with Xience Gaby 2.75 x 12 mm stent; Small, atretic left internal mammary artery graft to a diagonal branch of the left anterior descending; Normal left ventricular end-diastolic pressure; Normal global left ventricular systolic function with ejection fraction of approximately 60%. 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 Oncologist Dr Mahoney and Dr Ortega at [place], [place] Echocardiogram of September [address] Giles showed LVEF 55-65%. Mild to mod TR. PASP 45-50mmHg Carotid u/s of Feb 2019 showed mild to mod carotid dz without hemodynamic signif 24 HR Holter of Mar 16, 2019 with NSR with av HR 79 bpm. Rare, isolated PVC's and PAC's. No VT or SVT or significant bradycardia on this study Pulmonary hypertension per echo of September 2018 Sleep apnea - CPAP tx in the past that he stopped in or around October 2019 because he felt he didn't have DIANA any longer after thyroid surgery. (He did check with his sleep physician, Dr Chaves, before stopping CPAP) Hypertension Hyperlipidemia, treated with statin and followed by his pcp Impaired fasting glucose Non-arteritic anterior ischemic optic neuropathy (NAION) - for which he is following with Dr. Pro at [facility], apparently resolved after thyroid surgery of early 2019 Plan: During this hosp, we added Plavix and increased BB after PCI to LAD. He is currently doing well, has not exhibited any arrhythmia post PCI. Wishes to go home. We discussed risk factor mod. We answered his and his 's questions in detail. Outpt f/u advised. Compliance with meds advised MARCELINO SEGURA MD FACP [facility]S Apr 17, 2020 15:22
--- NOTE | 2020-04-17 15:26 | Cardiology Discharge Summary ---
Diagnosis/Chief Complaint Date of Admission Apr 16, 2020 at 11:00 Date of Discharge 04/17/20 Final/Discharge Diagnosis Nonsustained wide-complex tachycardia during recovery phase of ETT-MPI on 04/16/20, suggestive of ischemia, treated with relief of ischemia by stenting a severe, ostial stenosis of the LAD on 04/16/20 CAD, s/o MORRISSEY to LAD in 2010. Last card cath on 04/16/20: Coronary artery disease consisting of 70% ostial and proximal stenosis of left anterior descending artery that was successfully stented with Xience Gaby 2.75 x 12 mm stent; Small, atretic left internal mammary artery graft to a diagonal branch of the left anterior descending; Normal left ventricular end-diastolic pressure; Normal global left ventricular systolic function with ejection fraction of approximately 60%. 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 Oncologist Dr Mahoney and Dr Ortega at [place], [place] Echocardiogram of September [address] Giles showed LVEF 55-65%. Mild to mod TR. PASP 45-50mmHg Carotid u/s of Feb 2019 showed mild to mod carotid dz without hemodynamic signif 24 HR Holter of Mar 16, 2019 with NSR with av HR 79 bpm. Rare, isolated PVC's and PAC's. No VT or SVT or significant bradycardia on this study Pulmonary hypertension per echo of September 2018 Sleep apnea - CPAP tx in the past that he stopped in or around October 2019 because he felt he didn't have DIANA any longer after thyroid surgery. (He did check with his sleep physician, Dr Chaves, before stopping CPAP) Hypertension Hyperlipidemia, treated with statin and followed by his pcp Impaired fasting glucose Non-arteritic anterior ischemic optic neuropathy (NAION) - for which he is following with Dr. Pro at [facility], apparently resolved after thyroid surgery of early 2019 Chief Complaint/HPI Chief Complaint/HPI HPI Mr. Orellana is a 60 year old male who is being admitted to [facility] from his exercise cardiolite stress test earlier this morning d/t episodes of WCT during the recovery phase. He denies any c/o CP, palpitations, dyspnea, syncope or near syncope. No c/o LE swelling. No c/o n/v/d. No c/o fever or chills. For hospital course and condition at discharge, please see the progress note of today's date (04/17/20) Discharge Summary Discussion & Recommendations Home Medications Reviewed patient Home Medication Reconciliation performed by pharmacy medication reconciliations mobile battery technician and/or nursing. Patients Allergies have been reviewed. Discharge Home Medications: Reviewed and agree with Discharge Medication list on patient's Discharge Ins truction sheet Instructions to patient/family F/u with Dr Coleman in one week MARCELINO COLEMAN MD FACP [facility] CCDS Apr 17, 2020 15:26
--- NOTE | 2020-04-17 16:30 | NUR ---
PT EDUCATED ON DISCHARGE INSTRUCTIONS AND HOME MEDICATIONS. PT STATED UNDERSTANDING.
== END 2020-04-17 16:35 | disposition home or self-care (01) ==
LOC: CARD 07:45 → CSD 11:00 → ICU 15:34
PROVIDERS: ADMIT Internal Medicine Cardiovascular Disease; ATTEND Internal Medicine Cardiovascular Disease
DX: I25.10 Atherosclerotic heart disease of native coronary artery without angina pectoris (principal); I10 Essential (primary) hypertension; E78.5 Hyperlipidemia, unspecified; G47.30 Sleep apnea, unspecified; Z79.82 Long term (current) use of aspirin; Z79.899 Other long term (current) drug therapy; Z88.0 Allergy status to penicillin
CPT/HCPCS: 78452; 80048 ×2; 80061; 84443; 85027 ×2; 85610; 85730; 93005; 93017; 93459; 93567; A9502; C1769; C1874; C1887; C1894 ×2; C9600; 36415

== ENCOUNTER → 2021-05-11 | Outpatient (CLI) | payer OTHER ==
[~2021-05-11] MED LIST changes: -CATHETER FLUSH 10 ML SYR IV PRN; +CLOP75TA28 PO; +METO100T6 PO
== END ==
LOC: CARD 14:30
PROVIDERS: ATTEND Internal Medicine Cardiovascular Disease
DX: I27.21 Secondary pulmonary arterial hypertension (principal)
CPT/HCPCS: 93306

== ENCOUNTER 2021-11-03 06:12 | Outpatient (CLI) | payer OTHER ==
[~2021-11-03] VITALS: Ht 180 cm; Wt 84.0 kg
[2021-11-03] MEDS ORDERED: TMSL.4C PO (11:00)
[2021-11-03] MEDS ORDERED: LIOT5TAB10 PO (11:00)
[2021-11-03] MEDS ORDERED: LEVO175C2 PO (11:00)
[2021-11-03] MEDS ORDERED: TADA20TA PO (11:00)
== END 2021-11-03 11:12 | disposition home or self-care (01) ==
LOC: PREOP 06:12
PROVIDERS: ATTEND Internal Medicine
DX: Z01.818 Encounter for other preprocedural examination (principal)

== ENCOUNTER 2021-11-11 07:23 | Day surgery (SDC) | payer OTHER ==
--- NOTE | 2021-11-03 08:10 | HISTORY AND PHYSICAL ---
DATE OF SERVICE: COLONOSCOPY HISTORY AND PHYSICAL HISTORY OF PRESENT ILLNESS: The patient is a 61-year-old white male referred by Dr. Dylon Cagle for screening colonoscopy. I had performed his only other colonoscopy in 2009, at which time no evidence for neoplasia or significant diverticular disease was noted. He is not aware of any family history for colon cancer. Occasionally, he notes some bright red blood per rectum when he wipes, but no blood in the stool. Denies melena or change in weight. Over the past 11 years, there had been some significant changes in history. He was diagnosed with low-grade non-Hodgkin's lymphoma that is being watched conservatively. It was noted at that time he underwent surgery for what turned out to be papillary carcinoma of the thyroid in 2019. This was likely cured. He had a melanoma on his right forearm apparently a low Garry's level without evidence for recurrence a number of years ago and is going to be undergoing retinal surgery for vision correction involving the right eye in 3 or 4 weeks. He has a past history of coronary artery disease and underwent carotid artery bypass grafting, a number of years ago with no cardiovascular complications since. His bypass surgery in fact was now about 11 years ago. SOCIAL HISTORY: He works for [employer] for the last 40 years with no smoking and only rare alcohol intake. He is with adult children. REVIEW OF SYSTEMS: CONSTITUTIONAL: Denies night sweats, chills, fever, change in weight. GASTROINTESTINAL: As noted in the HPI. PULMONARY: Denies cough, wheezing or shortness of breath. CARDIOVASCULAR: Denies orthopnea, PND, pedal edema, chest discomfort or dyspnea on exertion. PHYSICAL EXAMINATION: GENERAL: Reveals a well-appearing white male, appears to be in no acute distress. VITAL SIGNS: Blood pressure 142/70, weight 191 pounds. HEENT: Unremarkable. Sclerae nonicteric. CHEST: Clear to auscultation. CARDIOVASCULAR: Reveals a regular rate and rhythm without significant murmur, S3 or S4. ABDOMEN: Soft, supple without mass, organomegaly, tenderness or evidence for abdominal aortic aneurysm or bruits. On physical examination, bowel sounds are positive. No mass or organomegaly noted. EXTREMITIES: Reveal no cyanosis, clubbing or edema. ASSESSMENT: The patient is being set up for screening colonoscopy. Prep instructions with Suprep kit were given and questions were answered. He will hold aspirin one week prior to the procedure, which he had been doing due to a small amount of retinal hemorrhage, which likely occurred over a year ago. Prep instructions with Suprep kit were given and questions were answered. I thank you for the referral of this pleasant gentleman. Job ID: [id number] DocumentID: [id number] Dictated Date: 10/31/2021 16:17:46 Hris Coordinator Date: 10/31/2021 17:02:55 Dictated By: RODRÍGUEZ ROBERTS MD
[~2021-11-11] VITALS: Ht 180 cm; Wt 84.0 kg
[~2021-11-11 07:23] MED LIST changes: +LEVO175C2 PO; +LIOT5TAB10 PO; +TADA20TA PO; +TMSL.4C PO
[2021-11-11] MEDS ORDERED: LACTATED RINGERS 1,000 ML IV ONE (07:29)
--- NOTE | 2021-11-11 07:36 | Pre-Op Note & Conscious Sedat ---
Pre-Operative Progress Note H&P Reviewed The H&P was reviewed, patient examined and no changes noted. Date H&P Reviewed: Nov 11, 2021 Time H&P Reviewed: 07:36 Conscious Sedation Pre-Proced ASA Score 2 For ASA 3 and 4: Consider anesthesia and medical clearance. Also, for patients with a history of failed moderate sedation consider anesthesia. Airway Lungs Heart ASA score ASA 1: a normal healthy patient ASA 2: a patient with a mild systemic disease (mid diabetes, controlled hypertension, obesity ASA 3: a patient with a severe systemic disease that limits activity (angina, COPD, prior Myocardial infarction) ASA 4: a patient with an incapacitating disease that is a constant threat to life (CHF, renal failure) ASA 5: a moribund patient not expected to survive 24 hrs. (ruptured aneurysm) ASA 6: a declared brain- patient whose organs are being harvested. For emergent operations, add the letter E after the classification Mallampati Classification Grade 2 Sedation Plan Analgesia, Amnesia, Plan communicated to team members, Discussed options with patient/fam, Discussed risks with patient/fam The patient is an appropriate candidate to undergo the planned procedure, sedation, and anesthesia. The patient immediately re-assessed prior to indication. RODRÍGUEZ ROBERTS MD Nov 11, 2021 07:36
[2021-11-11] MEDS ORDERED: LACTATED RINGERS 1,000 ML IV STA (07:37)
[2021-11-11 07:52] VITALS: BP 162/84
[2021-11-11] MEDS ORDERED: proPOfol 200 MG/20 ML (DIPRIVAN) VIAL IV ONE ×2 (08:05→08:09)
[2021-11-11 08:35] VITALS: BP 95/50
[2021-11-11 08:40] VITALS: BP 98/54
[2021-11-11 08:45] VITALS: BP 98/54
[2021-11-11 09:00] VITALS: BP 100/60
--- NOTE | 2021-11-11 10:14 | Anesthesia-General Post-Op ---
MAC Patient Condition Mental Status/LOC: Same as Preop Cardiovascular: Satisfactory Nausea/Vomiting: Absent Respiratory: Satisfactory Pain: Controlled Complications: Absent Post Op Complications Complications None Follow Up Care/Instructions Patient Instructions None needed. Anesthesiology Discharge Order Discharge Order Patient is doing well, no complaints, stable vital signs, no apparent adverse anesthesia problems. No complications reported per nursing. MAYRA LINCOLN ROPE LAYING MACHINE OPERATOR Nov 11, 2021 10:14
--- NOTE | 2021-11-11 10:47 | OPERATIVE REPORT ---
DATE OF SERVICE: COLONOSCOPY SUMMARY INDICATION FOR THE PROCEDURE: Screening colonoscopy. PROCEDURE IN DETAIL: The patient was placed in the left lateral decubitus position. Prior to undergoing colonoscopy, digital rectal evaluation was performed. Anal sphincter tone was normal and the perianal reflexes intact. The prostate is mildly enlarged and anodular on digital inspection. No abnormalities were noted on digital inspection of anal canal or distal rectal vault. The colonoscope was then inserted into the rectum and under direct visualization advanced to the cecum. The cecum was identified by identification of ileocecal valve and cecal strap. Photographic documentation was obtained. Careful inspection was made as colonoscope was withdrawn. Quality of prep was good. FINDINGS: There was no evidence for internal or external hemorrhoids. Present in the distal rectum was a diminutive 3 mm sessile polyp. It was biopsied and ablated and submitted for histopathology. The remainder of the rectum was unremarkable. Present in the proximal sigmoid colon was a 5 mm sessile polyp was photographed, biopsied and ablated with no blood loss. The descending colon, splenic flexure, transverse colon were unremarkable. Present another diminutive 2 mm polyp was noted at hepatic flexure, was biopsied and ablated. A 3 mm proximal ascending colonic polyp was biopsied and ablated as well. The cecum was unremarkable. No evidence for diverticular disease was noted. ASSESSMENT: Three small sessile polyps were removed as noted above with no subsequent blood loss. As long as there is no surprise on histopathology report and as long as there continues to be no family history for colon cancer, we would advocate consideration for repeat screening colonoscopy in 10 years. Digital evaluation of the prostate was compatible with mild BPH. I thank you for the referral of this pleasant gentleman. CC: Dr. Dylon Cagle - requested, unable to deliver. Job ID: [id number] DocumentID: [id number] Dictated Date: 11/11/2021 08:41:08 Bookkeeper Receptionist Date: 11/11/2021 10:47:16 Dictated By: RODRÍGUEZ ROBERTS MD
== END 2021-11-11 09:10 | disposition home or self-care (01) ==
LOC: ENDO 07:23
PROVIDERS: ATTEND Internal Medicine
DX: Z12.11 Encounter for screening for malignant neoplasm of colon (principal); K62.1 Rectal polyp; D12.3 Benign neoplasm of transverse colon; D12.2 Benign neoplasm of ascending colon; D12.5 Benign neoplasm of sigmoid colon; C85.90 Non-Hodgkin lymphoma, unspecified, unspecified site
CPT/HCPCS: 88305

== ENCOUNTER 2021-11-24 05:33 | Outpatient (CLI) | payer OTHER ==
[~2021-11-24] VITALS: Ht 180.3 cm; Wt 84.0 kg
== END 2021-11-24 13:53 | disposition home or self-care (01) ==
LOC: PREOP 05:33
PROVIDERS: ATTEND Surgery
DX: Z01.818 Encounter for other preprocedural examination (principal)

== ENCOUNTER 2021-12-01 06:25 | Day surgery (SDC) | payer OTHER ==
[2021-12-01] VITALS (12 sets, daily range): BP systolic 127–150; BP diastolic 66–80
[~2021-12-01] VITALS: Ht 180.3 cm; Wt 84.0 kg
[2021-12-01] MEDS: LACTATED RINGERS 1,000 ML IV PRN ×2 (07:25→11:32)
[2021-12-01] MEDS ORDERED: CLINDAMYCIN 600 MG/50 ML IVPB 50 ML IV ONE (08:00)
[2021-12-01] MEDS ORDERED: morphine INJ 10 MG/ML 1ML (SYR OR VIAL) IVP PRN (09:30)
[2021-12-01] MEDS ORDERED: ONDANSETRON 4 MG/2 ML (SDV) Z0FRAN IVP PRN ×2 (09:30→12:45)
[2021-12-01] MEDS ORDERED: ACETAMINOPHEN 325 MG TABLET PO PRN (09:30)
[2021-12-01] MEDS ORDERED: HYDROcodone/APAP 5 MG/325 MG (LORTAB) TAB PO ONE (09:30)
--- NOTE | 2021-12-01 09:30 | Progress Note-Pre Operative ---
Pre-Operative Progress Note H&P Reviewed The H&P was reviewed, patient examined and no changes noted. Date Seen by Provider: December 01, 2021 Time Seen by Provider: 09:25 Date H&P Reviewed: December 01, 2021 Time H&P Reviewed: 09:20 Pre-Operative Diagnosis: Lymphadenopathy, right breast swelling, history of thyroid cancer and NHL JONATHAN HUNT APRN December 01, 2021 09:30
[2021-12-01] MEDS ORDERED: HYDR-3817 PO (09:31)
--- NOTE | 2021-12-01 09:31 | Discharge Inst-Surgical ---
D/C Lap Instructions-KIDO Reconcile Patient Problems Problems Reviewed?: Yes New, Converted, or Re-Newed RX: RX on Chart Follow Up Appt in 2 weeks Activity as tolerated No driving for 24 hours No driving while on pain medications Incentive Spirometry use every 2 hours while awake Regular Diet Symptoms to Report: Fever over 101 degree F, Nausea/Vomiting Infection Signs and Symptoms to report: Increased redness, Foul odor of wound, Increased drainage Bathing instructions: May shower Operative Area Clean/Dry; Keep incision clean/dry If any problems/questions: Contact your physician or go to Emergency Room JONATHAN HUNT APRN December 01, 2021 09:31
[2021-12-01] MEDS ORDERED: fentaNYL INJ 100 MCG/2 ML AMP ONE (10:27)
[2021-12-01] MEDS ORDERED: proPOfol 200 MG/20 ML (DIPRIVAN) VIAL IV ONE (10:27)
[2021-12-01] MEDS ORDERED: LIDOCAINE PF 2% 5 ML (XYLOCAINE) VIAL ONE (10:27)
[2021-12-01] MEDS ORDERED: ONDANSETRON 4 MG/2 ML (SDV) Z0FRAN ONE (10:27)
[2021-12-01] MEDS ORDERED: SEVOFLURANE (ULTANE) 15 ML INHAL SOLN ONE ×2 (10:27→12:21)
[2021-12-01] MEDS ORDERED: MIDAZOLAM 2 MG/2 ML (VERSED) VIAL ONE (10:27)
[2021-12-01] MEDS ORDERED: METHYLENE BLUE 0.5% (PROVAYBLUE) 50 mg/10 ml vial IV ONE (10:28)
[2021-12-01] MEDS ORDERED: LIDOCAINE/EPI 1%-1:200,000 (XYLOCAINE) 30 ML VIAL ONE (10:28)
--- NOTE | 2021-12-01 12:11 | Progress Note-Post Operative ---
Post-Operative Progess Note Surgeon (s)/Spa Attendant (s) Surgeon JUANCHO SALGADO MD Spa Attendant: sarbjit poe INSTRUMENT REPAIRER HELPER Pre-Operative Diagnosis Lymphadenopathy, right breast swelling, history of thyroid cancer and NHL Post-Operative Diagnosis lt axillary lymphadenopathy, submuscular chest wall/axillary mass. Procedure & Operative Findings Date of Procedure 12/01/21 Procedure Performed/Findings deep axillary sentinel node bx, submuscular injection, excision axillary/submuscular chest wall mass. Anesthesia Type general LMA Estimated Blood Loss Estimated blood loss (mL): minimal Specimens/Packing Specimens Removed axillary node, chest wall mass. JUANCHO SALGADO MD December 01, 2021 12:11
--- NOTE | 2021-12-01 12:36 | Anesthesia-General Post-Op ---
General Patient Condition Mental Status/LOC: Same as Preop Cardiovascular: Satisfactory Nausea/Vomiting: Absent Respiratory: Satisfactory Pain: Controlled Complications: Absent Post Op Complications Complications None Follow Up Care/Instructions Patient Instructions None needed. Anesthesia/Patient Condition Patient Condition Patient is doing well, no complaints, stable vital signs, no apparent adverse anesthesia problems. No complications reported per nursing. DOM BECERRA CRNA December 01, 2021 12:36
[2021-12-01] MEDS ORDERED: morphine INJ 10 MG/ML 1ML (SYR OR VIAL) IVP ONE (12:45)
[2021-12-01] MEDS ORDERED: fentaNYL INJ 100 MCG/2 ML AMP IVP ONE (12:45)
--- NOTE | 2021-12-01 17:33 | OPERATIVE REPORT ---
DATE OF SERVICE: 12/01/2021 ATTENDING PRIMARY CARE PHYSICIAN: Dr. Dylon Cagle. 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 POSTOPERATIVE DIAGNOSES: Right axillary lymphadenopathy and large submuscular lipoma 20 x 20 cm in size. PROCEDURES PERFORMED: Right axillary sentinel node biopsy, Subdermal injection, right axillary and submuscular mass excision 20 x 20 cm. SURGEON: Juancho Viveros MD. SECURITY SYSTEM ADMINISTRATOR: Dylon Cole APRN. ANESTHESIA: General laryngeal mask airway. ESTIMATED BLOOD LOSS: Minimal. FINDINGS: Right axillary lymphadenopathy and large submuscular lipoma 20 x 20 cm in size. DISPOSITION: The patient tolerated the procedure well. INDICATIONS FOR PROCEDURE: The patient is a 61-year-old male known to us we, who have seen before for skin lesions, which were excised and found to be benign. He also does have a history of a malignant melanoma of the right upper extremity, underwent a wide local excision as well as a sentinel node biopsy, which was found to be negative for malignancy. This was done in 2009. He also has a history of non-Hodgkin's lymphoma as well as metastatic papillary thyroid cancer and is status post bilateral radical neck dissection. He reports a slow growth along the axilla as well as the anterior and superior chest wall, which has been occurring since his surgery, which was in 2019. He did undergo a recent CT scan, which did show significant lymphadenopathy in her both axilla, chest as well as moderate bulky retroperitoneal and mesenteric lymph nodes again consistent with his lymphoma. The chest wall lesion as well as axillary lymphadenopathy could be a multitude of different things due to his history of a non-Hodgkin's lymphoma as well as a history of melanoma of the right upper extremity and a history of metastatic papillary thyroid cancer. DESCRIPTION OF PROCEDURE: The patient was brought to the operating room, laid supine on the table. After adequate IV pain and sedative medications and laryngeal mask airway intubation, the chest and axilla as well as right upper extremity were prepped and draped in a standard surgical fashion. Before the procedure, subdermal injection of isosulfan blue was performed at the previous excision site of the melanoma excision site along the right lateral arm overlying the elbow. A lymphoscintigraphy by radiology was also performed. Using the radioactive counter, the sentinel node was identified and the skin in the axilla along the anterior axillary line was anesthetized using 1% lidocaine with epinephrine and an oblique skin incision was made using a 15 blade. The subcutaneous tissue as well as the clavipectoral fascia was then opened using electrocautery. Two sentinel nodes were identified by a counter. These were both excised and sent to pathology. The sentinel node counts were above 20,000 with a background 210 consistent with sentinel lymph nodes. Upon further inspection of the axilla as well as the chest wall, a large lipomatous mass was identified, which was in the axilla as well as subpectoralis major and minor musculature. The skin incision was then extended superiorly using a 15 blade and subcutaneous tissue was opened using electrocautery. We then proceeded with meticulous dissection of the mass. The medial and lateral pectoralisnerves as well as the thoracodorsal and long thoracic nerves were identified and spared throughout the process. Good hemostasis was also observed. This was then excised off the chest wall using electrocautery. There appeared to be a fascial plane over the chest wall that did not encompass the mass. Good hemostasis was observed. The specimen was sent to pathology. A 19-[place] James-Bowman drain was then placed into the axilla and chest wall and brought out the inferior portion of the axilla and sutured to the skin using 3-0 nylon suture. The clavipectoral fascia was then reapproximated using 3-0 Vicryl interrupted sutures and the skin was closed using 4-0 Monocryl running subcuticular suture. Wound was then cleaned and covered with Dermabond. The patient tolerated the procedure well. We will start IV normal pain medication as well as a clear liquid diet. Once he is tolerating clears, has good pain control with oral pain medications, and ambulating well, we will discharge him home. He will also be instructed to keep the compression dressing on the chest as well as axilla and to continue monitoring drain output and we will have him follow up in the office in one week. Job ID: [id number] DocumentID: [id number] Dictated Date: 12/01/2021 12:28:41 Wire Mesh Knitter Date: 12/01/2021 17:32:58 Dictated By: JUANCHO VIVEROS MD [facility]
--- NOTE | 2021-12-05 10:03 | Diagnostic Imaging Report ---
LYMPHOSCINTOGRAPHY INDICATION: Right breast mass, lymphoma COMPARISON: None available. FINDINGS: 2 spot scintigraphic images of the chest were obtained after the intradermal injection of radiotracer within the right lateral chest around the breasts. [place] lymph node drainage is to the right axilla. IMPRESSION: Radiotracer injection for intraoperative localization with imaging demonstrating a sentinel lymph node drainage is to the right axilla. Dictated by: Dictated on workstation # [id number]
== END 2021-12-01 14:25 ==
LOC: CARD 06:25
PROVIDERS: ATTEND Surgery
DX: C91.90 Lymphoid leukemia, unspecified not having achieved remission (principal); D17.1 Benign lipomatous neoplasm of skin and subcutaneous tissue of trunk; Z87.891 Personal history of nicotine dependence; Z85.850 Personal history of malignant neoplasm of thyroid; Z85.72 Personal history of non-Hodgkin lymphomas
CPT/HCPCS: 21554; 38525; 38792; 78195; 87081; 88304; 88307; 88341; 88342; 94664; A9541

== ENCOUNTER → 2022-02-27 | Outpatient (CLI) | payer OTHER ==
[~2022-02-27] MED LIST changes: +HYDR-3817 PO
--- NOTE | 2022-02-27 13:10 | Diagnostic Imaging Report ---
INDICATION: Left ankle injury and swelling. TIME OF EXAM: 11:28 AM. FINDINGS: Three views of the left ankle were obtained. FINDINGS: The ankle mortise is well maintained. The talar dome is smooth. No fracture or dislocation is seen. There does appear to be some ankle swelling both medially and laterally. IMPRESSION: Soft tissue swelling. No acute bony abnormality is detected. Dictated by: Dictated on workstation # [id number]
--- NOTE | 2022-02-27 13:10 | Diagnostic Imaging Report ---
INDICATION: Left foot injury. TIME OF EXAM: 11:31 AM. FINDINGS: The metatarsals appear to be intact. The phalanges are intact. The midfoot and hindfoot are unremarkable. No fractures are seen. IMPRESSION: No acute bony abnormality is detected. Dictated by: Dictated on workstation # [id number]
--- NOTE | 2022-02-27 13:11 | Diagnostic Imaging Report ---
INDICATION: Fall with left leg pain. TIME OF EXAM: 11:32 AM. TECHNIQUE: AP and lateral views of the left tibia and fibula were obtained. FINDINGS: Alignment at the knee and ankle appears normal. The tibia and fibula are intact. No fractures are seen. IMPRESSION: No acute bony abnormality is detected. Dictated by: Dictated on workstation # [id number]
== END ==
LOC: RAD 11:13
PROVIDERS: ATTEND Nurse Practitioner Family
DX: S99.912A Unspecified injury of left ankle, initial encounter (principal); W19.XXXA Unspecified fall, initial encounter
CPT/HCPCS: 73590; 73610; 73630

== ENCOUNTER 2023-03-15 05:29 | Outpatient (CLI) | payer OTHER ==
[~2023-03-15] VITALS: Ht 180 cm; Wt 79.5 kg
[~2023-03-15 05:29] MED LIST changes: -LIOT5TAB10 PO
[2023-03-16] MEDS ORDERED: LIOT5TAB10 PO (11:00)
== END 2023-03-16 12:51 | disposition home or self-care (01) ==
LOC: PREOP 05:29
PROVIDERS: ATTEND Surgery
DX: Z01.818 Encounter for other preprocedural examination (principal)

== ENCOUNTER 2023-03-22 10:20 | Day surgery (SDC) | payer OTHER ==
[2023-03-22] VITALS (10 sets, daily range): BP systolic 143–169; BP diastolic 71–89
[~2023-03-22] VITALS: Ht 180 cm; Wt 79.5 kg
[~2023-03-22 10:20] MED LIST changes: +LIOT5TAB10 PO
[2023-03-22] MEDS ORDERED: CLINDAMYCIN 600 MG/50 ML IVPB 50 ML IV ONE ×2 (10:45→11:06)
[2023-03-22] MEDS ORDERED: LACTATED RINGERS 1,000 ML 1,000 ML IV PRN (10:45)
--- NOTE | 2023-03-22 11:13 | Progress Note-Pre Operative ---
Pre-Operative Progress Note Date of Available H&P: Mar 22, 2023 Date H&P Reviewed: Mar 22, 2023 Time H&P Reviewed: 11:00 History & Physical: No changes noted Pre-Operative Diagnosis: left chest melanoma JUANCHO SALGADO MD Mar 22, 2023 11:13
[2023-03-22] MEDS ORDERED: HYDR-3817 PO (11:14)
[2023-03-22] MEDS ORDERED: morphine INJ 10 MG/ML 1ML (SYR OR VIAL) IVP PRN ×3 (11:15)
[2023-03-22] MEDS ORDERED: ONDANSETRON INJECTION 4 MG/2 ML (SDV) IVP PRN ×3 (11:15→16:00)
[2023-03-22] MEDS ORDERED: HYDROcodone/ACETAMINOPHEN 5 MG/325 MG TABLET PO ONE (11:15)
[2023-03-22] MEDS ORDERED: oxyCODONE/ACETAMINOPHEN 5/325MG TABLET PO PRN (11:15)
[2023-03-22] MEDS ORDERED: ACETAMINOPHEN 325 MG TABLET PO PRN ×2 (11:15)
--- NOTE | 2023-03-22 11:15 | Discharge Inst-Surgical ---
D/C Lap Instructions-KIDO Reconcile Patient Problems Problems Reviewed?: Yes New, Converted, or Re-Newed RX: RX on Chart Follow Up Appt in 2 weeks Activity as tolerated No driving for 24 hours No driving while on pain medications Incentive Spirometry use every 2 hours while awake Regular Diet Symptoms to Report: Fever over 101 degree F, Nausea/Vomiting Infection Signs and Symptoms to report: Increased redness, Foul odor of wound, Increased drainage Bathing instructions: May shower Operative Area Clean/Dry; Keep incision clean/dry If any problems/questions: Contact your physician or go to Emergency Room JONATHAN HUNT APRN Mar 22, 2023 11:15
[2023-03-22] MEDS ORDERED: LIDOCAINE/EPI 1%-1:200,000 (XYLOCAINE) 30 ML VIAL ONE (12:28)
[2023-03-22] MEDS ORDERED: fentaNYL INJECTION 100 MCG/2 ML VIAL ONE (14:15)
[2023-03-22] MEDS ORDERED: LIDOCAINE PF 2% 5 ML VIAL ONE (14:50)
[2023-03-22] MEDS ORDERED: proPOfol INJECTION 200 MG/20 ML VIAL IV ONE (14:50)
[2023-03-22] MEDS ORDERED: LIDOCAINE/EPI 1%-1:200,000 (XYLOCAINE) 30 ML VIAL INJ ONE (15:34)
[2023-03-22] MEDS ORDERED: SEVOFLURANE (ULTANE) 15 ML INHAL SOLN ONE (15:35)
--- NOTE | 2023-03-22 15:43 | Progress Note-Post Operative ---
Post-Operative Progess Note Surgeon (s)/Mail Courier (s) Surgeon JUANCHO SALGADO MD Mail Courier: sarbjit poe INSTRUMENT WORKER Pre-Operative Diagnosis left chest melanoma Post-Operative Diagnosis same Procedure & Operative Findings Date of Procedure 03/22/23 Procedure Performed/Findings subdermal injection, left axillary lymph node bx x4, wide excision melanoma c hest(5x5cm) with complex flap closure. Anesthesia Type general LMA Estimated Blood Loss Estimated blood loss (mL): minimal Specimens/Packing Specimens Removed left axilla deep lymph node x4, left chest melanoma. JUANCHO SALGADO MD Mar 22, 2023 15:43
--- NOTE | 2023-03-22 15:47 | Anesthesia-General Post-Op ---
General Patient Condition Mental Status/LOC: Same as Preop Cardiovascular: Satisfactory Nausea/Vomiting: Absent Respiratory: Satisfactory Pain: Controlled Complications: Absent Post Op Complications Complications None Follow Up Care/Instructions Patient Instructions None needed. Anesthesia/Patient Condition Patient Condition Patient is doing well, no complaints, stable vital signs, no apparent adverse anesthesia problems. No complications reported per nursing. ROSIE BOSWELL CRNA Mar 22, 2023 15:47
--- NOTE | 2023-03-22 15:59 | Diagnostic Imaging Report ---
Indication: Left upper chest melanoma. A total of 1.1 mCi of technetium 99m Lymphoseek was injected in 4 separate aliquots around the lesion in the left upper chest. Imaging was then performed demonstrating some migration of activity to the left axilla. IMPRESSION: Lymphoscintigraphy for identification of a left axillary sentinel node. Dictated by: Dictated on workstation # [id number]
[2023-03-22] MEDS ORDERED: fentaNYL INJECTION 100 MCG/2 ML VIAL IVP ONE (16:00)
[2023-03-22] MEDS ORDERED: MEPERIDINE INJ 50 MG/ML VIAL IVP ONE (16:00)
[2023-03-22] MEDS ORDERED: morphine INJ 10 MG/ML 1ML (SYR OR VIAL) IVP ONE (16:00)
--- NOTE | 2023-03-22 22:52 | OPERATIVE REPORT ---
DATE OF SERVICE: 03/22/2023 ATTENDING PRIMARY CARE PHYSICIAN: Dr. Dylon Cagle. PREOPERATIVE DIAGNOSIS: Left chest melanoma. POSTOPERATIVE DIAGNOSIS: Left chest melanoma. PROCEDURE: Subdermal injection, left deep axillary node, sentinel lymph node biopsy x4, wide excision of melanoma, left chest with complex flap closure, 5 x 5 cm in size. ANESTHESIA: General laryngeal mask airway with local. ESTIMATED BLOOD LOSS: Minimal. FINDINGS: A 4 clustered sentinel lymph nodes. Nuclear count sentinel node 6500 with a background count of 240. DISPOSITION: The patient tolerated the procedure well. INDICATIONS: The patient is a 62-year-old male with a biopsy-proven melanoma arising from a lesion of the left chest just above the nipple areolar complex. He states that the lesion had been around for years; however, his physician noted changes in the lesion and underwent a biopsy of the lesion, which did come back as a melanoma. The depth of the lesion was approximately 0.6 mm in depth. This gentleman also does have a previous history of non-Hodgkin's lymphoma as well as a history of local regional metastatic thyroid cancer and previous melanoma of the right upper extremity. He has also had multiple other skin lesions removed in the past as well. DESCRIPTION OF PROCEDURE: The patient was brought to the operating room. Before the procedure, the patient underwent a subdermal injection as well as a lymphoscintigraphy and lymph node mapping. Before the procedure, we proceeded with a subdermal injection of isosulfan blue subdermally along 4 corners of the lesion. This was then massaged in for 15 minutes. The chest, neck and upper extremity were then prepped and draped in standard surgical fashion. We first proceeded with excision of the sentinel node. Using the nuclear counter an area in the axilla, which was marked with lymphoscintigraphy lead up. An area along the anterior axillary line was then anesthetized using 0.5% Marcaine with epinephrine and an oblique skin incision made using a #15 blade. The subcutaneous tissue as well as the clavipectoral fascia was then dissected open using electrocautery. Using blunt dissection as well as the nuclear counter we were able to identify the sentinel lymph node. There was 3 more adjacent lymph nodes within the region as well. All positive by imaging radioactive tracer as well as a dyed blue from the isosulfan blue. It was decided to remove this group of lymph nodes using electrocautery as well as blunt dissection with visualization of good hemostasis. This was sent for permanent pathology. Good hemostasis was observed and the clavipectoral fascia was then reapproximated using 3-0 Vicryl interrupted suture. The skin was closed using 4-0 Monocryl running subcuticular suture. We then proceeded with wide excision of the left chest melanoma. The wound was measured out followed by a 1 cm margins in an elliptical shape. This area was then anesthetized using 0.5% Marcaine with epinephrine. Using a #15 blade, the skin with a cut in an elliptical shape. We then proceeded with a deep excision into the subcutaneous fat using electrocautery. The specimen was then sent to pathology. The excised dimensions of the lesion were 5 x 5 cm. We then proceeded with complex flap closure by creating a superior, inferior, and lateral flaps creating using electrocautery. We were then able to close the opening in an S-shaped flap using interrupted 3-0 Prolene interrupted sutures. Good hemostasis was observed. This wound was then cleaned and covered with a sterile dressing. The patient tolerated the procedure well. We will start IV normal pain medication as well as a clear liquid diet. Once tolerating clears with good pain control with oral pain medications, ambulating well, we will discharge him home where he will be instructed to do no heavy lifting for the next 2 weeks. Job ID: [id number] DocumentID: [id number] Dictated Date: 03/22/2023 15:51:35 Millinery Salesperson Date: 03/22/2023 21:37:00 Dictated By: JUANCHO SALGADO MD [facility]
--- NOTE | 2023-04-05 21:36 | HISTORY AND PHYSICAL ---
HISTORY OF PRESENT ILLNESS: The patient is a 62-year-old male who was found to have a biopsy-proven left upper chest melanoma. He had also had a previous history of a right upper extremity melanoma requiring wide local excision. The patient also does have a history of low-grade non-Hodgkin's lymphoma as well as a papillary thyroid carcinoma diagnosed in 2019 and underwent total thyroidectomy. Due to the findings of the melanoma of the left upper chest, it was decided to proceed with a wide local excision as well as lymphoscintigraphy and sentinel node biopsy. PAST MEDICAL HISTORY: Coronary artery disease, hypertension, history of papillary thyroid carcinoma, history of right upper extremity melanoma, history of non-Hodgkin's lymphoma. PAST SURGICAL HISTORY: Total thyroidectomy, wide local excision of a right upper extremity melanoma. ALLERGIES: PENICILLIN. MEDICATIONS: Levothyroxine 175 mcg daily, liothyronine 5 mcg daily, metoprolol 100 mg daily, simvastatin 40 mg daily, tadalafil 20 mg daily, tamsulosin 0.4 mg daily. SOCIAL HISTORY: Negative smoke. Rare alcohol. FAMILY HISTORY: Noncontributory. VITAL SIGNS: Temperature 36.7, blood pressure 159/71, pulse 69, respirations 20, pulse ox 97% on room air. REVIEW OF SYSTEMS: Well-nourished male in no acute distress. He is not experiencing shortness of breath or difficulty breathing. No chest pain, palpitations, diaphoresis. No nausea or vomiting. No diarrhea or constipation. No red blood per rectum, no dark tarry stools. No fever, chills, no recent inadvertent weight loss. All other review of systems negative. PHYSICAL EXAMINATION: CHEST: Good breath sounds bilaterally. HEART: Regular. No murmurs. EXTREMITIES: No lower extremity edema. Negative Homans sign. HEENT: No scleral icterus. No cervical lymphadenopathy. ABDOMEN: Soft, nontender, nondistended. SKIN: There is a small scar from a previous excisional biopsy of a skin lesion of the left upper chest with no residual visible skin lesion. There is no axillary or supraclavicular adenopathy. ASSESSMENT AND PLAN: A 62-year-old male with biopsy-proven melanoma of the left upper chest. We will proceed with wide local excision with 1 cm margins as well as complex flap closure as well as lymphoscintigraphy and sentinel lymph node biopsy. Job ID: [id number] DocumentID: [id number] Dictated Date: 04/05/2023 21:07:41 Coil Builder Date: 04/05/2023 21:35:00 Dictated By: JUANCHO SALGADO MD
== END 2023-03-22 17:08 ==
LOC: SDC 10:20
PROVIDERS: ATTEND Surgery
DX: C43.59 Malignant melanoma of other part of trunk (principal); C85.82 Other specified types of non-Hodgkin lymphoma, intrathoracic lymph nodes; F17.210 Nicotine dependence, cigarettes, uncomplicated; Z28.310 Unvaccinated for COVID-19
CPT/HCPCS: 14001; 38525; 38900; 78195; 87081; 88305; 88307; 88344; A9520